=== PATIENT | male | born 1970 | race Caucasian/White ===

== ENCOUNTER 2025-03-16 09:46 | Outpatient (AMB) | payer SELFPAY ==
[2025-03-16 09:48] VITALS: BP 142/90; PULSE 98; TEMP 36.7; O2SAT 97; BMI 28.4
--- NOTE | 2025-03-16 09:48 | AM.OFFWIN_ITS ---
Intake Vital Signs 3 03/16/25 09:48 Height 5 ft 8 in Weight 187 lb BMI 28.4 BP 142/90 H Blood Pressure Location Lt brachial Position Sitting Pulse 98 Pulse Source Pulse Oximeter Temp 98.1 F Temp Source Oral Pulse Oximetry (%) 97 Oxygen Delivery Method Room Air Intake Visit Reasons: EP Right eye swelling/ pain Intake Note: pt present with left eye wheeping, redness and gritty feeling starting this morning Allergies No Known Allergies Allergy (Verified 03/16/25 09:52) Do you need a note to return to daycare/school/sports/work: No HPI EP Right eye swelling/ pain 2 HPI0 Details 55 year old male patient presents to the [place] clinic today with report of waking up with left eye symptoms including redness, watering, and sensation of grittiness. Denies pain or crusting of discharge. Does not wear contact lenses. Does not recall getting anything in his eye. Denies any vision changes or blurriness. He feels that perhaps there was something scratching his eye this morning, however he put drops in and also rinsed his eye in the shower and it is feeling somewhat improved. Review of Systems Const All systems reviewed & are unremarkable except as noted in HPI and below Physical Exam Vital Signs: Last Vital Signs Temp 98.1 F 03/16/25 09:48 Pulse 98 03/16/25 09:48 BP 142/90 H 03/16/25 09:48 Pulse Ox 97 03/16/25 09:48 Oxygen Delivery Method Room Air 03/16/25 09:48 BMI result Body Mass Index 28.4 Const General: cooperative and no acute distress HEENT Head: Yes normal to inspection Ears: hearing grossly normal bilaterally Eyes Alignment and Position: alignment normal Eyelids: Yes eyelids normal Conjunctivae: conjunctival abnormal left conjunctival injection diffuse and discharge (watery) Corneas: corneas abnormal on the left fluorescein used and abrasion linear and at the following clock position (6:00) and fluorescein used Pupils: Equal, round and reactive pupils present and Pupil accommodation reflex normal EOM: EOMs intact bilaterally Direct Ophthalmoscopy: normal light reflex Eyes/upper lids images: 2 1. corneal abrasion Neck Neck: Yes normal visual inspection Resp Effort & Inspection: normal respiratory effort Skin General skin exam: no rashes or lesions noted Neuro Cranial nerves: Yes Equal, round and reactive pupils present Psych Appearance: grossly normal Mental Status: mental status grossly normal Speech and movement: Normal speech and movement present Assessment & Plan Assessment & Plan (1) Injury of conjunctiva and corneal abrasion of left eye without foreign body: Code(s): S05.02XA - Injury of conjunctiva and corneal abrasion without foreign body, left eye, initial encounter Qualifiers: Encounter type: initial encounter Qualified Code(s): S05.02XA - Injury of conjunctiva and corneal abrasion without foreign body, left eye, initial encounter Plan: I could not identify a foreign body to remove from eye. It is likely patient flushed it out this morning with drops/water flush. Fluorescein stain used to identify left lower corneal abrasion. I discussed this with patient. Will start him on erythromycin ointment. We reviewed use and possible s/e of this. We discussed indications to seek ophthalmologic or ED treatment, including increasing eye pain or blurry/changed vision. Patient verbalizes understanding and agrees to plan. Medications: New 2 erythromycin Apply 0.5 inch to lower lid of left eye 4 times daily for 5 days 1 appl ophthalmic (eye) QID 3.5 grams 1RF 5 days S05.02XA - Injury of conjunctiva and corneal abrasion without foreign body, left eye, initial encounter Coding Level of Care Code Est Pt Level 4 (77742) Diagnoses Injury of conjunctiva and corneal abrasion of left eye without foreign body, initial encounter S05.02XA Encounter type: initial encounter
== END 2025-03-16 10:08 | disposition home or self-care (01) ==
PROVIDERS: Visit Provider Nurse Practitioner Family
DX: S05.02XA Injury of conjunctiva and corneal abrasion without foreign body, left eye, initial encounter (principal)

== ENCOUNTER → 2025-03-16 09:46 | Outpatient (BNVA) | payer SELFPAY | PROVIDERS: Visit Provider Nurse Practitioner Family | DX: S05.02XA Injury of conjunctiva and corneal abrasion without foreign body, left eye, initial encounter (principal); X58.XXXA Exposure to other specified factors, initial encounter; Y93.9 Activity, unspecified; Y92.9 Unspecified place or not applicable; Y99.9 Unspecified external cause status | CPT/HCPCS: 99212 ==